=== PATIENT | male | born 1935 | race Caucasian/White ===

== ENCOUNTER 2016-07-02 11:10 | Emergency (ER) | payer BC, OTHER ==
[~2016-07-02] VITALS: Ht 177.8 cm; Wt 86.0 kg
[~2016-07-02 11:10] MED LIST: ACCUPRIL5 MG PO; AMLODIPINE BESY10 MG PO; AVODART0.5 MG PO; BENADRYL25 MG PO; CIPRO500 MG PO; CIPROFLOXACIN500 M1 PO; COLACE100 MG PO; DILAUDID2 MG PO; DITROPAN5 MG PO; FINASTERIDE5 MG PO; FISH OIL300 MG PO; FLOMAX0.4 MG PO; INVOKANA100 MG PO; IRON325 M1 PO; LANTUS 3 M100 UNITS1 SC; LEVOFLOXACIN500 MG PO; LIPITOR80 MG PO; LITE COAT ASPI325 M1 PO; METFORMIN HCL1000 MG PO; MIRALAX17 GM PO; MULTICHEW CHEW1 EACH PO; NORVASC10 MG PO; PERCOCET 5/31 TABLET PO; PREDNISONE10 MG PO; PROSCAR5 MG PO; PROVENTIL HFA6.7 GM IH; PYRIDIUM200 MG PO; QUINAPRIL HCL5 MG PO; SAW PALMETTO450 MG PO; SENNA8.6 MG PO; STOOL SOFTENER100 M1 PO; TAMSULOSIN HCL0.4 MG PO; ZYRTEC10 M3 PO
[2016-07-02 11:24] VITALS: BP 123/79
== END 2016-07-02 13:32 | disposition home or self-care (01) ==
LOC: EME 11:10
PROC: 0HQGXZZ Repair Left Hand Skin, External Approach (ICD-10-PCS; principal; 2016-07-02)
DX: S61.412A Laceration without foreign body of left hand, initial encounter (principal); I10 Essential (primary) hypertension; Z79.01 Long term (current) use of anticoagulants; Y92.009 Unspecified place in unspecified non-institutional (private) residence as the place of occurrence of the external cause; W26.8XXA Contact with other sharp object(s), not elsewhere classified, initial encounter; Z88.6 Allergy status to analgesic agent
CPT/HCPCS: 99281; 99284